=== PATIENT | female | born 1985 | race African-American/Black ===

== ENCOUNTER 2021-10-12 05:30 | Inpatient (IN) | payer OTHER ==
[~2021-10-12 05:30] MED LIST: AMPICILLIN - 2 GM in SODIUM CHLORIDE 100 ML IVPB ONE
[2021-10-12] MEDS ORDERED: ELECTROLYTE-148 SOLN 500 ML IV ONE (05:45)
[2021-10-12] MEDS ORDERED: CITRIC ACID/SODIUM CITRATE 30 ML UNIT-DOSE CUP PO ONE (05:45)
[2021-10-12 06:07] VITALS: BMI 34.9
[2021-10-12] MEDS ORDERED: ELECTROLYTE-148 SOLN 1,000 ML IV SCH ×2 (06:15→07:00)
[2021-10-12] MEDS ORDERED: AMPICILLIN SODIUM 2 GM VIAL ONE (06:36)
[2021-10-12 08:16] LABS: HIV INTERPRETATION NEGATIVE (NEGATIVE)
[2021-10-12] MEDS ORDERED: METHYLERGONOVINE MALEATE 0.2 MG/1 ML AMP IM PRN (09:28)
[2021-10-12] MEDS ORDERED: SENNOSIDES/DOCUSATE COMBO (SENNA PLUS) TABLET (UD) PO PRN (09:28)
[2021-10-12] MEDS ORDERED: IBUPROFEN 800 MG/8 ML IJ IVPB PRN (09:28)
[2021-10-12] MEDS ORDERED: AMPICILLIN - 1 GM in SODIUM CHLORIDE 100 ML IVPB SCH (09:30)
[2021-10-12] MEDS ORDERED: morphine SULFATE/PF 1 MG/2 ML (2cc Syringe - QUVA) ONE (09:34)
[2021-10-12] MEDS ORDERED: PHENYLEPHRINE HCL 10 MG/1 ML SINGLE DOSE VIAL ONE (09:46)
[2021-10-12] MEDS ORDERED: ceFAZolin SODIUM 1 GM VIAL ONE (09:49)
[2021-10-12] MEDS ORDERED: ONDANSETRON 4 MG/2 ML VIAL ONE (09:52)
[2021-10-12] MEDS ORDERED: KETOROLAC TROMETHAMINE 30 MG/1 ML VIAL ONE (09:53)
[2021-10-12] MEDS: PRENATAL VITAMINS W/ FOLIC ACID TABLET (FP) PO SCH (10:12)
[2021-10-12] MEDS: OXYTOCIN 20 UNITS in 0.9% NS 20 UNIT/1,000 ML INFUS.BAG IV SCH (19:39)
[2021-10-12] MEDS: ACETAMINOPHEN 325 MG TABLET (FP) PO PRN (19:51)
[2021-10-12] MEDS ORDERED: oxyCODONE HCL 5 MG TABLET PO PRN ×2 (21:28)
[2021-10-13] MEDS: OXYTOCIN 20 UNITS in 0.9% NS 20 UNIT/1,000 ML INFUS.BAG IV SCH (02:09)
[2021-10-13] MEDS: ACETAMINOPHEN 325 MG TABLET (FP) PO PRN (02:22)
[2021-10-13] MEDS: IBUPROFEN 600 MG TABLET (FP) PO PRN ×4 (04:40→19:44)
[2021-10-13 07:49] LABS: BASO % 0.7 % (0-2.0); EOS % 0.6 % (0-4.5); HEMATOCRIT 35.3 % (32.4-45.2); HEMOGLOBIN 11.7 GM/dL (10.7-15.3); LYMPH % 16.1 % (8-40); MCH 30.1 pg (25.7-33.7); MCHC 33.2 g/dl (32.0-36.0); MEAN CELL VOLUME 90.7 fl (80-96); MEAN PLT VOLUME 9.5 fl (7.5-11.1); MONO % 7.4 % (3.8-10.2); NEUT % 75.2 % (42.8-82.8); PLATELET COUNT 217 10^3/uL (134-434); RBC 3.89 M/mm3 (3.60-5.2); RDW 13.6 % (11.6-15.6); WHITE BLOOD COUNT 14.7 K/mm3 (4.0-10.0)
[2021-10-13] MEDS: PRENATAL VITAMINS W/ FOLIC ACID TABLET (FP) PO SCH (09:11)
[2021-10-13] MEDS ORDERED: BISACODYL 10 MG SUPP.RECT RC PRN (09:28)
[2021-10-13] MEDS: SIMETHICONE 80 MG TAB.CHEW (FP) PO PRN (19:44)
[2021-10-14] MEDS: IBUPROFEN 600 MG TABLET (FP) PO PRN ×5 (03:38→20:57)
[2021-10-14] MEDS: SIMETHICONE 80 MG TAB.CHEW (FP) PO PRN ×2 (03:38→20:57)
[2021-10-14] MEDS: PRENATAL VITAMINS W/ FOLIC ACID TABLET (FP) PO SCH (11:28)
[2021-10-14] MEDS: LABETALOL HCL 200 MG TABLET (FP) PO SCH (21:31)
[2021-10-15] MEDS: IBUPROFEN 600 MG TABLET (FP) PO PRN ×2 (02:13→08:28)
[2021-10-15] MEDS: SIMETHICONE 80 MG TAB.CHEW (FP) PO PRN (02:13)
[2021-10-15] MEDS: LABETALOL HCL 200 MG TABLET (FP) PO SCH (09:44)
[2021-10-15] MEDS: PRENATAL VITAMINS W/ FOLIC ACID TABLET (FP) PO SCH (09:44)
[2021-10-15 11:12] VITALS: BP 125/75; PULSE 90; TEMP 98.6
== END 2021-10-15 13:10 | disposition home or self-care (01) | DRG 540 ==
LOC: JLDR 05:30 → J3W 12:19
PROVIDERS: ADMIT Obstetrics & Gynecology; ATTEND Obstetrics & Gynecology
PROC: 10D00Z1 Extraction of Products of Conception, Low, Open Approach (ICD-10-PCS; principal; 2021-10-12)
DX: O34.211 Maternal care for low transverse scar from previous cesarean delivery (principal); O36.5930 Maternal care for other known or suspected poor fetal growth, third trimester, not applicable or unspecified; O42.02 Full-term premature rupture of membranes, onset of labor within 24 hours of rupture; Z3A.37 37 weeks gestation of pregnancy; Z37.0 Single live birth
CPT/HCPCS: 36415; 85025; 87389; 88307-TC